=== PATIENT | female | born 2000 | race Caucasian/White ===

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

== ENCOUNTER 2020-06-02 08:54 | Emergency (ER) | payer BC, OTHER ==
[~2020-06-02] VITALS: Ht 170.2 cm; Wt 56.7 kg
[~2020-06-02 08:54] MED LIST changes: +NYST237S MT; +ONDA4ODT MM
[2020-06-02] MEDS ORDERED: HYDHCL25 PO (09:16)
== END 2020-06-02 11:40 | disposition home or self-care (01) ==
LOC: ER 08:54
DX: M54.2 Cervicalgia (principal); R07.9 Chest pain, unspecified; F17.200 Nicotine dependence, unspecified, uncomplicated; Z88.5 Allergy status to narcotic agent; Z88.6 Allergy status to analgesic agent; Z79.899 Other long term (current) drug therapy; V48.6XXA Car passenger injured in noncollision transport accident in traffic accident, initial encounter; Y92.410 Unspecified street and highway as the place of occurrence of the external cause
CPT/HCPCS: 70450; 71046; 72125; 99285-25

== ENCOUNTER → 2020-11-21 | Outpatient (CLI) | payer BC, OTHER ==
[~2020-11-21] MED LIST changes: +HYDHCL25 PO
[2020-11-24 05:11] LABS: CHLAMYDIA TRACHOMATIS, NAA Negative (Negative)
== END ==
LOC: LAB 17:21 → LAB SHORT 17:21
PROVIDERS: Obstetrics & Gynecology
DX: Z34.01 Encounter for supervision of normal first pregnancy, first trimester (principal); Z88.5 Allergy status to narcotic agent; Z88.6 Allergy status to analgesic agent
CPT/HCPCS: 87491; 87591

== ENCOUNTER → 2021-03-15 | Outpatient (CLI) | payer BC, OTHER ==
[2021-03-15 19:31] LABS: BASOPHILS ABSOLUTE AUTO 0.04 K/mm3 (0.00-0.23); BASOPHILS PERCENT AUTO 0 % (0-2); EOSINOPHILS ABSOLUTE AUTO 0.05 K/mm3 (0.00-0.68); EOSINOPHILS PERCENT AUTO 0 % (0-6); Hematocrit 33.1 % (33.0-51.0); Hemoglobin 11.3 g/dL (11.5-16.0); IMMATURE GRAN ABSOLUTE AUTO 0.12 K/mm3 (0.00-0.10); IMMATURE GRAN PERCENT AUTO 1 % (0-1); LYMPHOCYTES ABSOLUTE AUTO 1.44 K/mm3 (0.84-5.20); LYMPHOCYTES PERCENT AUTO 9 % (21-46); MONOCYTES ABSOLUTE AUTO 0.64 K/mm3 (0.16-1.47); MONOCYTES PERCENT AUTO 4 % (4-13); Mean Corpuscular HGB Conc 34.1 g/dL (31.5-36.5); Mean Corpuscular Volume 94 fL (80-100); Mean Platelet Volume 10.9 fL (9.1-12.4); NEUTROPHILS ABSOLUTE AUTO 13.03 K/mm3 (1.96-9.15); NEUTROPHILS PERCENT AUTO 85 % (41-73); Platelet Count 276 K/mm3 (150-400); RDW Coefficient Variation 12.8 % (11.7-14.2); RDW Standard Deviation 43.3 fL (35.1-46.3); Red Blood Cell Count 3.53 M/mm3 (3.80-5.20); White Blood Cell Count 15.32 K/mm3 (4.00-11.30)
== END | disposition home or self-care (01) ==
LOC: LAB SHORT 18:42
PROVIDERS: Advanced Practice Midwife
DX: O09.93 Supervision of high risk pregnancy, unspecified, third trimester (principal)
CPT/HCPCS: 82950; 85025

== ENCOUNTER → 2021-05-07 | Outpatient (CLI) | payer BC, OTHER | END | disposition home or self-care (01) | LOC: LAB 17:26 → LAB SHORT 17:26 | DX: Z34.03 Encounter for supervision of normal first pregnancy, third trimester (principal) | CPT/HCPCS: 87081; 87150 ==

== ENCOUNTER 2021-06-07 12:50 | Inpatient (IN) | payer BC, OTHER ==
[~2021-06-07] VITALS: Ht 175.3 cm; Wt 76.0 kg
[2021-06-07] MEDS ORDERED: PRENATAL TABLE1 EAC2 PO (14:16)
[2021-06-07 14:30] LABS: BASOPHILS ABSOLUTE AUTO 0.02 K/mm3 (0.00-0.23); BASOPHILS PERCENT AUTO 0 % (0-2); EOSINOPHILS PERCENT AUTO 0 % (0-6); Hematocrit 37.7 % (33.0-51.0); Hemoglobin 12.7 g/dL (11.5-16.0); IMMATURE GRAN ABSOLUTE AUTO 0.17 K/mm3 (0.00-0.10); IMMATURE GRAN PERCENT AUTO 1 % (0-1); LYMPHOCYTES ABSOLUTE AUTO 0.83 K/mm3 (0.84-5.20); LYMPHOCYTES PERCENT AUTO 5 % (21-46); MONOCYTES ABSOLUTE AUTO 0.37 K/mm3 (0.16-1.47); MONOCYTES PERCENT AUTO 2 % (4-13); Mean Corpuscular HGB 30.2 pg (26.0-34.0); Mean Corpuscular HGB Conc 33.7 g/dL (31.5-36.5); Mean Corpuscular Volume 90 fL (80-100); Mean Platelet Volume 11.1 fL (9.1-12.4); NEUTROPHILS ABSOLUTE AUTO 14.56 K/mm3 (1.96-9.15); NEUTROPHILS PERCENT AUTO 91 % (41-73); Platelet Count 190 K/mm3 (150-400); RDW Coefficient Variation 13.4 % (11.7-14.2); RDW Standard Deviation 44.1 fL (35.1-46.3); White Blood Cell Count 15.95 K/mm3 (4.00-11.30)
[2021-06-07 14:56] LABS: Influenza A, PCR NEGATIVE (NEGATIVE); Influenza B, PCR NEGATIVE (NEGATIVE); Resp Syncytial Virus, PCR NEGATIVE (NEGATIVE); SARS-Cov-2 (COVID-19) PCR, MMC NEGATIVE (NEGATIVE)
--- NOTE | 2021-06-08 06:26 | NUR ---
pt slept well through night; no c/o painful ucs; no bleeding or leaking fluid; will make plan with doctor today on how to proceed
--- NOTE | 2021-06-08 10:02 | NUR ---
DR. LOZADA CALLED AT [phone]. TELEPHONE ORDERS RECEIEVED THAT PT CAN BE DISCHARGED WITH REACTIVE NST. IF THERE ARE ANY QUESITONS/CONCERNS FROM PT, DR. LOZADA TO BE IN AT NOON AFTER MEETING. CHARGE NURSE MAIK SANCHEZ VERBALLY NOTIFIED AT NURSES STATION AT 1000.
--- NOTE | 2021-06-08 12:16 | NUR ---
pt dcd to home undelivered, scheduled to return when in active labor or for induction 06-11-21
== END 2021-06-08 12:15 | disposition home or self-care (01) | DRG 833 ==
LOC: OBS 12:50 → BC 12:52 → OBS 13:53 → BC 13:53
PROVIDERS: ADMIT Obstetrics & Gynecology
DX: O48.0 Post-term pregnancy (principal); O99.343 Other mental disorders complicating pregnancy, third trimester; F41.9 Anxiety disorder, unspecified; O99.513 Diseases of the respiratory system complicating pregnancy, third trimester; J45.909 Unspecified asthma, uncomplicated; Z67.40 Type O blood, Rh positive; Z20.822 Contact with and (suspected) exposure to COVID-19; Z3A.40 40 weeks gestation of pregnancy; Z98.890 Other specified postprocedural states; Z88.5 Allergy status to narcotic agent; Z88.8 Allergy status to other drugs, medicaments and biological substances; Z79.899 Other long term (current) drug therapy
CPT/HCPCS: 0241U; 36415; 59025; 85025; 86850; 86900; 86901; A9270; C9113; J2270; J2405; J2550; J7120

== ENCOUNTER 2021-06-11 16:05 | Inpatient (IN) | payer BC, OTHER ==
[~2021-06-11] VITALS: Ht 175.3 cm; Wt 76.4 kg
[~2021-06-11 16:05] MED LIST changes: +PRENATAL TABLE1 EAC2 PO
[2021-06-11 16:59] LABS: BASOPHILS ABSOLUTE AUTO 0.06 K/mm3 (0.00-0.23); BASOPHILS PERCENT AUTO 1 % (0-2); EOSINOPHILS ABSOLUTE AUTO 0.18 K/mm3 (0.00-0.68); EOSINOPHILS PERCENT AUTO 1 % (0-6); Hematocrit 33.5 % (33.0-51.0); Hemoglobin 11.4 g/dL (11.5-16.0); IMMATURE GRAN ABSOLUTE AUTO 0.11 K/mm3 (0.00-0.10); IMMATURE GRAN PERCENT AUTO 1 % (0-1); LYMPHOCYTES ABSOLUTE AUTO 2.09 K/mm3 (0.84-5.20); LYMPHOCYTES PERCENT AUTO 16 % (21-46); MONOCYTES PERCENT AUTO 6 % (4-13); Mean Corpuscular HGB 30.6 pg (26.0-34.0); Mean Corpuscular Volume 90 fL (80-100); Mean Platelet Volume 11.1 fL (9.1-12.4); NEUTROPHILS ABSOLUTE AUTO 10.09 K/mm3 (1.96-9.15); NEUTROPHILS PERCENT AUTO 76 % (41-73); Platelet Count 224 K/mm3 (150-400); RDW Coefficient Variation 13.3 % (11.7-14.2); RDW Standard Deviation 43.9 fL (35.1-46.3); Red Blood Cell Count 3.72 M/mm3 (3.80-5.20); White Blood Cell Count 13.33 K/mm3 (4.00-11.30)
--- NOTE | 2021-06-12 14:05 | NUR ---
Pt visiting w/friends at bedside. Denies needs at this time.
--- NOTE | 2021-06-12 21:01 | NUR ---
Patient needed assistance. Notified Nurse.
--- NOTE | 2021-06-13 11:31 | NUR ---
PLAN D/C HOME WITH [facility]. WAITING FOR RIDE.
== END 2021-06-13 11:45 | disposition home or self-care (01) | DRG 807 ==
LOC: OBS 16:05 → BC 16:05 → OBS 16:20 → BC 16:22
PROVIDERS: ADMIT Obstetrics & Gynecology
PROC: 10E0XZZ Delivery of Products of Conception, External Approach (ICD-10-PCS; principal; 2021-06-12)
PROC: 3E0P7VZ Introduction of Hormone into Female Reproductive, Via Natural or Artificial Opening (ICD-10-PCS; 2021-06-12)
PROC: 00HU33Z Insertion of Infusion Device into Spinal Canal, Percutaneous Approach (ICD-10-PCS; 2021-06-12)
PROC: 3E0R3NZ Introduction of Analgesics, Hypnotics, Sedatives into Spinal Canal, Percutaneous Approach (ICD-10-PCS; 2021-06-12)
DX: O48.0 Post-term pregnancy (principal); Z37.0 Single live birth; O99.52 Diseases of the respiratory system complicating childbirth; Z28.21 Immunization not carried out because of patient refusal; J45.909 Unspecified asthma, uncomplicated; O99.344 Other mental disorders complicating childbirth; F41.9 Anxiety disorder, unspecified; Z98.890 Other specified postprocedural states; Z88.5 Allergy status to narcotic agent; Z88.8 Allergy status to other drugs, medicaments and biological substances; Z79.899 Other long term (current) drug therapy; Z67.40 Type O blood, Rh positive; Z3A.41 41 weeks gestation of pregnancy; O71.82 Other specified trauma to perineum and vulva
CPT/HCPCS: 36415; 51702; 85025; 86850; 86900; 86901; A9270; C9113; J2001; J2405; J3010; J7120

== ENCOUNTER 2022-09-30 18:18 | Emergency (ER) | payer BC, OTHER ==
[~2022-09-30] VITALS: Ht 175.3 cm; Wt 59.0 kg
[2022-09-30 18:34] VITALS: BP 121/76
== END 2022-09-30 21:26 | disposition home or self-care (01) ==
LOC: ER 18:18
DX: S01.81XA Laceration without foreign body of other part of head, initial encounter (principal); J45.909 Unspecified asthma, uncomplicated; F17.210 Nicotine dependence, cigarettes, uncomplicated; Z88.6 Allergy status to analgesic agent; Z88.5 Allergy status to narcotic agent; W55.12XA Struck by horse, initial encounter
CPT/HCPCS: 12001; 99283-25

== ENCOUNTER 2022-10-11 11:29 | Emergency (ER) | payer BC, OTHER ==
[~2022-10-11] VITALS: Ht 175.3 cm; Wt 65.8 kg
[2022-10-11 12:28] VITALS: BP 117/63
[2022-10-11 15:52] LABS: BASOPHILS ABSOLUTE AUTO 0.04 K/mm3 (0.00-0.23); BASOPHILS PERCENT AUTO 0 % (0-2); EOSINOPHILS PERCENT AUTO 1 % (0-6); Hematocrit 34.3 % (33.0-51.0); Hemoglobin 11.5 g/dL (11.5-16.0); IMMATURE GRAN ABSOLUTE AUTO 0.05 K/mm3 (0.00-0.10); IMMATURE GRAN PERCENT AUTO 0 % (0-1); LYMPHOCYTES ABSOLUTE AUTO 2.76 K/mm3 (0.84-5.20); LYMPHOCYTES PERCENT AUTO 23 % (21-46); MONOCYTES ABSOLUTE AUTO 1.03 K/mm3 (0.16-1.47); MONOCYTES PERCENT AUTO 9 % (4-13); Mean Corpuscular HGB 30.2 pg (26.0-34.0); Mean Corpuscular HGB Conc 33.5 g/dL (31.5-36.5); Mean Corpuscular Volume 90 fL (80-100); Mean Platelet Volume 9.2 fL (9.1-12.4); NEUTROPHILS ABSOLUTE AUTO 8.03 K/mm3 (1.96-9.15); NEUTROPHILS PERCENT AUTO 67 % (41-73); Platelet Count 233 K/mm3 (150-400); RDW Coefficient Variation 13.7 % (11.7-14.2); RDW Standard Deviation 45.1 fL (35.1-46.3); Red Blood Cell Count 3.81 M/mm3 (3.80-5.20); White Blood Cell Count 12.01 K/mm3 (4.00-11.30)
== END 2022-10-11 17:11 | disposition home or self-care (01) ==
LOC: ER 11:29
PROVIDERS: Physician Assistant
DX: O03.9 Complete or unspecified spontaneous abortion without complication (principal); O99.511 Diseases of the respiratory system complicating pregnancy, first trimester; J45.909 Unspecified asthma, uncomplicated; O99.331 Smoking (tobacco) complicating pregnancy, first trimester; F17.210 Nicotine dependence, cigarettes, uncomplicated; Z88.6 Allergy status to analgesic agent; Z88.5 Allergy status to narcotic agent; Z3A.08 8 weeks gestation of pregnancy
CPT/HCPCS: 36415; 76801; 76817; 84702; 85025; 86900; 86901; 99284-25; A9270

== ENCOUNTER 2023-09-09 16:44 | Emergency (ER) | payer BC, OTHER ==
[~2023-09-09] VITALS: Ht 175.3 cm; Wt 66.2 kg
[2023-09-09 17:23] VITALS: BP 122/70
[2023-09-09] MEDS ORDERED: NS 1,000 ML IV SCH ×2 (17:25→18:50)
[2023-09-09] MEDS ORDERED: Ondansetron HCl 2 MG / ML 2ML Vial IV ONE (17:30)
[2023-09-09 17:39] LABS: Source, Urine Clean Catch
[2023-09-09 17:52] LABS: Bilirubin, Urine Neg (Neg); Blood, Urine Neg (Neg); Color, Urine Yellow (P-Yellow); Glucose Qualitative, Urine Neg (Neg); Ketones, Urine 3+ (Neg); Leukocyte Esterase, Urine 1+ (Neg); Nitrite, Urine Neg (Neg); Protein, Urine 2+ (Neg); Urobilinogen, Urine 1+ (Normal)
[2023-09-09 17:57] LABS: BASOPHILS ABSOLUTE AUTO 0.04 K/mm3 (0.00-0.23); BASOPHILS PERCENT AUTO 0 % (0-2); EOSINOPHILS ABSOLUTE AUTO 0.04 K/mm3 (0.00-0.68); EOSINOPHILS PERCENT AUTO 0 % (0-6); Hematocrit 35.6 % (33.0-51.0); IMMATURE GRAN ABSOLUTE AUTO 0.02 K/mm3 (0.00-0.10); IMMATURE GRAN PERCENT AUTO 0 % (0-1); LYMPHOCYTES ABSOLUTE AUTO 2.75 K/mm3 (0.84-5.20); LYMPHOCYTES PERCENT AUTO 28 % (21-46); MONOCYTES ABSOLUTE AUTO 0.86 K/mm3 (0.16-1.47); MONOCYTES PERCENT AUTO 9 % (4-13); Mean Corpuscular HGB 27.8 pg (26.0-34.0); Mean Corpuscular HGB Conc 33.7 g/dL (31.5-36.5); Mean Corpuscular Volume 82 fL (80-100); Mean Platelet Volume 9.9 fL (9.1-12.4); NEUTROPHILS ABSOLUTE AUTO 6.23 K/mm3 (1.96-9.15); NEUTROPHILS PERCENT AUTO 63 % (41-73); Platelet Count 261 K/mm3 (150-400); RDW Coefficient Variation 16.8 % (11.7-14.2); RDW Standard Deviation 50.6 fL (35.1-46.3); Red Blood Cell Count 4.32 M/mm3 (3.80-5.20); White Blood Cell Count 9.94 K/mm3 (4.00-11.30)
[2023-09-09 17:58] LABS: Appearance, Urine Hazy (Clear)
[2023-09-09 17:59] LABS: Amorphous Light (0-Heavy); Bacteria Few /hpf; Red Blood Cells, Urine Not Seen /hpf (0-2); Squamous Epithelial Cells Few /hpf (Few)
[2023-09-09 18:20] LABS: Albumin, Blood 3.6 g/dL (3.4-5.0); Albumin/Globulin Ratio 0.9 (0.8-1.8); Bilirubin, Total 0.3 mg/dL (0.1-1.0); Bun/Creatinine Ratio 11.4 (12.0-20.0); Creatinine, Blood 0.7 mg/dL (0.40-1.00); Globulin, Blood 4.1 g/dL (2.2-4.0); Potassium, Blood 3.4 mmol/L (3.5-5.5); Total Protein, Blood 7.7 g/dL (6.4-8.2)
[2023-09-09] MEDS ORDERED: RX Prepack 2 Tabs Ondansetron ODT 4MG UD ONE (19:55)
== END 2023-09-09 20:20 | disposition home or self-care (01) ==
LOC: ER 16:44
PROVIDERS: Physician Assistant
DX: O21.9 Vomiting of pregnancy, unspecified (principal); Z3A.11 11 weeks gestation of pregnancy; O99.511 Diseases of the respiratory system complicating pregnancy, first trimester; J45.909 Unspecified asthma, uncomplicated; O99.331 Smoking (tobacco) complicating pregnancy, first trimester; F17.210 Nicotine dependence, cigarettes, uncomplicated; Z88.5 Allergy status to narcotic agent; Z88.8 Allergy status to other drugs, medicaments and biological substances
CPT/HCPCS: 80053; 81001; 85025; 87086; 96361; 96374; 99284-25; A9270; J2405; J7030

== ENCOUNTER → 2024-03-02 | Outpatient (CLI) | payer OTHER | LOC: LAB 14:06 → LAB SHORT 14:06 | DX: O09.893 Supervision of other high risk pregnancies, third trimester (principal) | CPT/HCPCS: 87081; 87150 ==

== ENCOUNTER 2024-03-22 19:05 | Inpatient (IN) | payer OTHER ==
[~2024-03-22] VITALS: Ht 175.3 cm; Wt 76.4 kg
[2024-03-22 19:22] VITALS: BP 121/71
[2024-03-22] MEDS ORDERED: Misoprostol 25 MCG Tab VAG PRN (19:40)
[2024-03-22] MEDS ORDERED: Tranexamic Acid 1,000 MG in NS 100 ML IV SCH (19:40)
[2024-03-22] MEDS ORDERED: Carboprost Tromethamine 250 MCG/ML 1ML Amp IM PRN (19:40)
[2024-03-22] MEDS ORDERED: Lactated Ringer's 1,000 ML IV PRN ×4 (19:40→19:45)
[2024-03-22] MEDS ORDERED: FentaNYL 2mcg/ml-Bup 0.1% Epd 250 ML EPI PRN (19:40)
[2024-03-22] MEDS ORDERED: Misoprostol 200 MCG Tab PR PRN (19:40)
[2024-03-22] MEDS ORDERED: OXYTOCIN/RINGER'S LACTATE 500 ML IV PRN ×2 (19:40→19:45)
[2024-03-22] MEDS ORDERED: Oxytocin 10 Unit / ML Vial IM PRN (19:40)
[2024-03-22] MEDS ORDERED: Methylergonovine Maleate 0.2MG / ML 1ML Amp IM PRN (19:40)
[2024-03-22] MEDS ORDERED: ePHEDrine Sulfate 50 MG/ML 1ML Injection XX PRN (19:40)
[2024-03-22] MEDS ORDERED: Misoprostol 200 MCG Tab BC PRN (19:40)
[2024-03-22] MEDS ORDERED: Ondansetron HCl 2 MG / ML 2ML Vial IV PRN (19:50)
[2024-03-22] MEDS ORDERED: Acetaminophen 500 MG Tab PO PRN (19:50)
[2024-03-22] MEDS ORDERED: Calcium Carbonate 500 MG Tab Chew PO PRN (19:50)
[2024-03-22] MEDS ORDERED: FentaNYL Citrate 50 MCG/ML 2 ML Injection IV PRN (19:55)
[2024-03-22 20:13] LABS: BASOPHILS ABSOLUTE AUTO 0.04 K/mm3 (0.00-0.23); BASOPHILS PERCENT AUTO 0 % (0-2); EOSINOPHILS ABSOLUTE AUTO 0.15 K/mm3 (0.00-0.68); EOSINOPHILS PERCENT AUTO 1 % (0-6); Hematocrit 29.4 % (33.0-51.0); Hemoglobin 9.8 g/dL (11.5-16.0); IMMATURE GRAN ABSOLUTE AUTO 0.12 K/mm3 (0.00-0.10); IMMATURE GRAN PERCENT AUTO 1 % (0-1); LYMPHOCYTES ABSOLUTE AUTO 2.06 K/mm3 (0.84-5.20); LYMPHOCYTES PERCENT AUTO 15 % (21-46); MONOCYTES ABSOLUTE AUTO 0.86 K/mm3 (0.16-1.47); MONOCYTES PERCENT AUTO 6 % (4-13); Mean Corpuscular HGB 28.3 pg (26.0-34.0); Mean Corpuscular HGB Conc 33.3 g/dL (31.5-36.5); Mean Corpuscular Volume 85 fL (80-100); Mean Platelet Volume 10.9 fL (9.1-12.4); NEUTROPHILS ABSOLUTE AUTO 10.66 K/mm3 (1.96-9.15); NEUTROPHILS PERCENT AUTO 77 % (41-73); Platelet Count 312 K/mm3 (150-400); RDW Coefficient Variation 15.5 % (11.7-14.2); Red Blood Cell Count 3.46 M/mm3 (3.80-5.20); White Blood Cell Count 13.89 K/mm3 (4.00-11.30)
[2024-03-22 20:51] VITALS: BP 104/59
[2024-03-22] MEDS ORDERED: FAMO20 PO (21:18)
[2024-03-22] MEDS ORDERED: PROM12.5S PR (21:19)
[2024-03-22] MEDS ORDERED: PRENATAL TABLE1 EAC2 PO (21:19)
[2024-03-22 21:21] VITALS: BP 114/58
[2024-03-22 21:44] VITALS: BP 120/77
[2024-03-22 22:26] VITALS: BP 131/67
[2024-03-23] VITALS (26 sets, daily range): BP systolic 108–192; BP diastolic 53–101
[2024-03-23] MEDS ORDERED: Lactated Ringer's 1,000 ML IV SCH ×2 (04:15→09:05)
[2024-03-23] MEDS ORDERED: Citric Acid/Sodium Citrate 30 ML BTL PO SCH (04:15)
[2024-03-23] MEDS ORDERED: CeFAZolin Sodium 2,000 MG in NS 100 ML IV SCH (04:15)
[2024-03-23] MEDS ORDERED: Metoclopramide HCl 5MG / ML 2ML Vial IV PRN (04:15)
[2024-03-23 05:17] LABS: PCO2 Cord - Arterial 56.6 mmHg (40-50); PO2 Cord - Arterial 19.7 mmHg (16-20); pH Cord - Arterial 7.23 (7.28-7.35)
[2024-03-23 05:18] LABS: PCO2 Cord - Venous 45.9 mmHg (40-50); PO2 Cord - Venous 21.9 mmHg (28-32); pH Umbilical Cord - Venous 7.34 (7.26-7.35)
[2024-03-23] MEDS ORDERED: OXYTOCIN/RINGER'S LACTATE 500 ML IV SCH (08:55)
[2024-03-23] MEDS ORDERED: Measles/Mumps/Rubella Vaccine 0.5 ML Vial SC PRN (08:55)
[2024-03-23] MEDS ORDERED: Lanolin Cream TOP PRN (08:55)
[2024-03-23] MEDS ORDERED: FLU VACC TS2024-25(6MOS UP)/PF 45 MCG/0.5 ML SYRINGE IM PRN (09:00)
[2024-03-23] MEDS ORDERED: Witch Hazel/Glycerin PADS TOP PRN (09:00)
[2024-03-23] MEDS ORDERED: Misoprostol 200 MCG Tab PR PRN (09:00)
[2024-03-23] MEDS ORDERED: Prenatal Vit/FE Fumarate/FA 1 Tab PO SCH (09:00)
[2024-03-23] MEDS ORDERED: Methylergonovine Maleate 0.2MG / ML 1ML Amp IM PRN (09:00)
[2024-03-23] MEDS ORDERED: Rho(D) Immune Globulin 300 MCG / SYR IM ONE (09:00)
[2024-03-23] MEDS ORDERED: Docusate Sodium 100 MG Cap PO PRN (09:05)
[2024-03-23] MEDS ORDERED: Benzocaine Topical Anesthetic Spray 60GM TOP PRN (09:05)
[2024-03-23] MEDS ORDERED: Acetaminophen 500 MG Tab PO PRN (09:05)
[2024-03-23] MEDS ORDERED: Ibuprofen 400 MG Tab PO PRN (10:05)
[2024-03-23] MEDS ORDERED: IBUP800 PO (13:32)
[2024-03-24 00:09] VITALS: BP 123/78
[2024-03-24 05:47] VITALS: BP 121/59
[2024-03-24 08:19] VITALS: BP 129/67
[2024-03-24 08:33] VITALS: BP 129/67
--- NOTE | 2024-03-24 11:19 | NUR ---
DISCHARGE PACKET REVIEWED, NO QUESTIONS AT THIS TIME, PATIENT VERBALIZED UNDERSTANDING INSTRUCTIONS AND FOLLOW UP APPOINTMENTS.
[2024-03-24 11:31] VITALS: BP 135/73
--- NOTE | 2024-03-24 11:35 | NUR ---
DISCHARGE TO HOME WITH NB
== END 2024-03-24 11:35 | disposition home or self-care (01) | DRG 806 ==
LOC: OBS 19:05 → BC 19:07 → OBS 19:12 → BC 19:14
PROVIDERS: ADMIT Obstetrics & Gynecology
PROC: 10E0XZZ Delivery of Products of Conception, External Approach (ICD-10-PCS; principal; 2024-03-23)
PROC: 3E0DXGC Introduction of Other Therapeutic Substance into Mouth and Pharynx, External Approach (ICD-10-PCS; 2024-03-23)
PROC: 0UQMXZZ Repair Vulva, External Approach (ICD-10-PCS; 2024-03-23)
DX: O76 Abnormality in fetal heart rate and rhythm complicating labor and delivery (principal); O99.324 Drug use complicating childbirth; Z37.0 Single live birth; F12.90 Cannabis use, unspecified, uncomplicated; O71.82 Other specified trauma to perineum and vulva; O70.0 First degree perineal laceration during delivery; Z3A.39 39 weeks gestation of pregnancy; Z87.891 Personal history of nicotine dependence; Z88.5 Allergy status to narcotic agent; Z88.6 Allergy status to analgesic agent; Z88.8 Allergy status to other drugs, medicaments and biological substances; Z79.899 Other long term (current) drug therapy
CPT/HCPCS: 36415; 51701; 82803; 85025; 86850; 86900; 86901; A9270; J2590; J3010; J7120